=== PATIENT | female | born 1970 | race Caucasian/White ===

== ENCOUNTER 2016-09-25 05:41 | Day surgery (SDC) | payer BC ==
[2016-09-25] VITALS (11 sets, daily range): BP systolic 101–121; BP diastolic 56–74; PULSE 58–92; TEMP 98
[~2016-09-25] VITALS: Ht 170.2 cm; Wt 81.4 kg
[2016-09-25] MEDS ORDERED: ZOLOFT 100MG100 MG PO (06:36)
[2016-09-25] MEDS ORDERED: TOPAMAX50 MG PO (06:36)
[2016-09-25] MEDS ORDERED: SYNTHROID0.075 MG/T PO (06:36)
[2016-09-25] MEDS ORDERED: ZYRTEC 10MG10 MG PO (06:37)
[2016-09-25] MEDS ORDERED: DESYREL 100MG100 MG PO (06:37)
[2016-09-25] MEDS ORDERED: FERROUS SULFATE65 MG PO (06:37)
[2016-09-25] MEDS ORDERED: CALCIUM/MAGNESI1 T17 PO (06:39)
[2016-09-25] MEDS ORDERED: MAXALT10 MG PO (06:40)
[2016-09-25] MEDS ORDERED: WOMEN'S DAILY F1 TAB PO (06:40)
[2016-09-25] MEDS ORDERED: ZOFRAN ODT4 MG PO (06:40)
[2016-09-25] MEDS ORDERED: SYSTANE NIGHTT3.5 GM OP (06:42)
[2016-09-25] MEDS ORDERED: SYSTANE0.3% OP (06:42)
[2016-09-25] MEDS ORDERED: TEARS-ARTIFICIA15 ML OP (06:44)
[2016-09-25] MEDS ORDERED: ALAWAY 10 ML10 ML OP (06:44)
[2016-09-25] MEDS ORDERED: PERCOCET 325 MG1 TA2 PO (07:27)
[2016-09-25] MEDS ORDERED: MOTRIN 800800 MG/TAB PO (07:27)
[2016-09-26 02:13] VITALS: BP 101/54; PULSE 58; TEMP 97.3
[2016-09-26 08:06] VITALS: BP 112/62; PULSE 89
== END 2016-09-26 11:30 | disposition home or self-care (01) ==
LOC: SDCO 05:41
DX: N92.0 Excessive and frequent menstruation with regular cycle (principal); D25.2 Subserosal leiomyoma of uterus; D25.1 Intramural leiomyoma of uterus; D64.9 Anemia, unspecified
CPT/HCPCS: A4315; C1713; E0710; J0690; J1100; J1885; J2175; J2405; J2704; J3010; J7120

== ENCOUNTER 2017-06-14 07:37 | Emergency (ER) | payer BC ==
[~2017-06-14] VITALS: Ht 167.6 cm; Wt 86.4 kg
[~2017-06-14 07:37] MED LIST: ALAWAY 10 ML10 ML OP; CALCIUM/MAGNESI1 T17 PO; DESYREL 100MG100 MG PO; FERROUS SULFATE65 MG PO; MAXALT10 MG PO; MOTRIN 800800 MG/TAB PO; PERCOCET 325 MG1 TA2 PO; SYNTHROID0.075 MG/T PO; SYSTANE NIGHTT3.5 GM OP; SYSTANE0.3% OP; TEARS-ARTIFICIA15 ML OP; TOPAMAX50 MG PO; WOMEN'S DAILY F1 TAB PO; ZOFRAN ODT4 MG PO; ZOLOFT 100MG100 MG PO; ZYRTEC 10MG10 MG PO
[2017-06-14 07:39] VITALS: TEMP 98.4
[2017-06-14] MEDS ORDERED: ZOFRAN ODT4 MG PO (08:11)
[2017-06-14] MEDS ORDERED: CALCIUM 600 PLU1 TAB PO (08:18)
[2017-06-14] MEDS ORDERED: MASON NATURAL2000 IU PO (08:18)
[2017-06-14] MEDS ORDERED: RESTASIS 60VL OU (08:19)
[2017-06-14 08:20] LABS: BASO # 0.1 (0.0-0.2); BASO % 0.6 % (0.0-2.0); EOS % 0.4 % (0-4.0); GRAN # 6.3 (1.4-6.5); HEMATOCRIT 40.3 % (37.0-47.0); LYMPH # 1.3 (1.2-3.4); LYMPH % 16.2 % (20.0-51.0); MEAN CELL VOLUME 87 fl (80.0-100.0); MEAN CORPUSCULAR HEMOGLOBIN 30 pg (27.0-31.0); MEAN CORPUSCULAR HGB CONC 35 g/dl (33.0-37.0); MEAN PLATELET VOLUME 10.1 fl (7.4-10.4); MONO # 0.4 (0.1-0.6); MONO % 4.7 % (1.7-9.3); PLATELET COUNT 264 K/mm3 (130-400); RED BLOOD COUNT 4.65 M/mm3 (4.10-5.30); WHITE BLOOD COUNT 8.1 K/mm3 (4.8-10.8)
[2017-06-14 08:41] LABS: ADJUSTED CALCIUM 8.8 mg/dL (8.4-10.2); ALBUMIN 4.3 gm/dL (3.5-5.0); BILIRUBIN,TOTAL 1.5 mg/dL (0.0-1.0); C-REACTIVE PROTEIN 0.6 mg/dL (0.0-0.9); CREATININE, serum 0.83 mg/dL (0.52-1.25); POTASSIUM 3.4 mmol/L (3.4-5.0); TOTAL PROTEIN 7.6 gm/dL (6.4-8.2)
[2017-06-14 09:12] LABS: COLLECTION METHOD CLEAN CATCH
[2017-06-14 09:19] LABS: MUCOUS Present /lpf; PH 8 (5-8); SQUAMOUS EPITHELIAL None Seen /hpf; URINE APPEARANCE Clear; URINE BACTERIA None Seen /hpf; URINE BILIRUBIN Negative (NEGATIVE); URINE BLOOD Negative (NEGATIVE); URINE COLOR Straw; URINE GLUCOSE Negative (NEGATIVE); URINE KETONE Negative (NEGATIVE); URINE LEUKOCYTE ESTERASE Negative (NEGATIVE); URINE PROTEIN(semi-quant) Negative (NEGATIVE); URINE RBC None Seen /hpf; URINE UROBILINOGEN Negative (NEGATIVE); URINE WBC None Seen /hpf
[2017-06-14 11:23] VITALS: BP 129/78; PULSE 71
== END 2017-06-14 11:30 | disposition home or self-care (01) ==
LOC: COL.ER 07:37
PROVIDERS: Family Medicine
DX: E86.0 Dehydration (principal); R11.2 Nausea with vomiting, unspecified; G43.909 Migraine, unspecified, not intractable, without status migrainosus
CPT/HCPCS: J1200; J2405; J2550; J7030

== ENCOUNTER → 2017-11-25 | Outpatient (CLI) | payer BC ==
[~2017-11-25] MED LIST changes: +CALCIUM 600 PLU1 TAB PO; +MASON NATURAL2000 IU PO; +RESTASIS 60VL OU
== END ==
LOC: MC.RAD 14:30
DX: Z12.31 Encounter for screening mammogram for malignant neoplasm of breast (principal)

== ENCOUNTER → 2019-02-21 | Outpatient (CLI) | payer BC | LOC: MC.RAD 08:00 | DX: N60.01 Solitary cyst of right breast (principal); N63.20 Unspecified lump in the left breast, unspecified quadrant | CPT/HCPCS: G0279 ==